=== PATIENT | female | born 1980 | race Caucasian/White ===

== ENCOUNTER 2016-07-26 10:39 | Emergency (ER) | payer SELFPAY ==
[~2016-07-26] VITALS: Ht 172.7 cm; Wt 60.8 kg
[2016-07-26 11:10] VITALS: BP 95/57
[2016-07-26] MEDS ORDERED: PERMETHRIN60 GM TOPIC (11:35)
[2016-07-26 11:42] VITALS: BP 108/72
--- NOTE | 2016-07-26 12:07 | Emergency Room Report ---
History of Present Illness General Chief Complaint: Skin Rash/Abscess Source: Patient Present Illness HPI 35 YOF presents with rash to right wrist for 1 week. States "there is some tunnelling" now so I'm worried about scabies. Patient works as massage therapist. Also recently relocated from [place] so has been staying with friends in different beds/living situations. Itchy rash only at night, localized to palmar aspect of right wrist only. Denies fever/chills, blistering , vesicles. Allergies: Coded Allergies: No Known Allergies (Unverified , 07/26/16) Patient History Past Medical History: none Past Surgical History: none Pertinent Family History: none Social History: Denies: alcohol use, drug use, smoking Now: No Reviewed Nursing Documentation: PMH: Agreed, PSxH: Agreed Nursing Documentation-PMH Past Medical History: No Stated History Review of Systems All Other Systems: negative except mentioned in HPI Physical Exam Vital Signs Date Time Temp Pulse Resp B/P Pulse Ox O2 Delivery O2 Flow Rate FiO2 07/26/16 11:10 97.9 54 16 95/57 99 Room Air Sp02 EP Interpretation: reviewed, normal General Appearance: normal inspection, well appearing, no apparent distress, alert, GCS 15, non-toxic Head: normocephalic, atraumatic Eyes: bilateral eye EOMI, bilateral eye PERRL ENT: normal ENT inspection, hearing grossly normal, normal voice Neck: normal inspection, full range of motion, supple, no bony tend Respiratory: normal inspection, lungs clear, normal breath sounds, no respiratory distress, no retraction, no wheezing Cardiovascular #1: regular rate, rhythm, no edema Gastrointestinal: normal inspection, normal bowel sounds, non tender, soft, no guarding, no hernia Genitourinary: no CVA tenderness Musculoskeletal: normal inspection, back normal, normal range of motion, Klaus' s Sign negative Neurologic: normal inspection, alert, oriented x3, responsive, house servant III-XII nml as tested, motor strength/tone normal, speech normal Psychiatric: normal inspection, judgement/insight normal, mood/affect normal Skin: normal inspection, normal color, no rash Lymphatic: normal inspection Medical Decision Making Diagnostic Impression: Primary Impression: Rash ER Course 35 YOF with rash to right wrist. ?Contact dermatitis, scabies. VSS. Afebrile. Will try trial of elemite Patient refused med for itch, uses "tiger balm" for itch at night DC home Last Vital Signs Date Time Temp Pulse Resp B/P Pulse Ox O2 Delivery O2 Flow Rate FiO2 07/26/16 11:42 97.9 62 14 108/72 98 Room Air Status: improved Disposition: HOME, SELF-CARE Condition: Improved Scripts Permethrin* (ELIMITE*) 60 Gm Cream..g. 1 APPLIC TOPIC ONCE, #60 GM 0 Refills Apply cream from head to toe; leave on for 8-14 hours before washing off with water; may reapply in 1 week if live mites appear. Prov: BELLA REDMOND M.D. 07/26/16 Referrals: NOT CHOSEN IPA/,REFERRING (PCP) Patient Instructions: Rash Additional Instructions: Apply cream head-to-toe tonight and wash off in the morning Wash all sheets and bedding with hot water BELLA REDMOND M.D. Jul 26, 2016 12:07
== END 2016-07-26 11:44 | disposition home or self-care (01) ==
LOC: EMR 11:30
DX: R21 Rash and other nonspecific skin eruption (principal)
CPT/HCPCS: 99282; 99283